=== PATIENT | male | born 1995 | race African-American/Black ===

== ENCOUNTER 2021-05-25 23:29 | Emergency (ER) | payer OTHER ==
[2021-05-25 23:43] VITALS: BP 130/78; PULSE 82; TEMP 98.7; BMI 17.1
[2021-05-26] MEDS ORDERED: ACETAMINOPHEN 500 MG TABLET (FP) PO ONE (03:51)
== END 2021-05-26 03:59 | disposition home or self-care (01) ==
LOC: JER 23:29
DX: S51.811A Laceration without foreign body of right forearm, initial encounter (principal); W25.XXXA Contact with sharp glass, initial encounter; Y92.9 Unspecified place or not applicable
CPT/HCPCS: 73090-TC-RT-FY; 73130-TC-RT-FY; 99284-25

== ENCOUNTER 2021-05-28 11:58 | Emergency (ER) | payer OTHER ==
[2021-05-28 12:31] VITALS: BP 139/76; PULSE 91; TEMP 97.9; BMI 17.1
== END 2021-05-28 13:47 | disposition home or self-care (01) ==
LOC: JERFT 11:58
DX: Z48.00 Encounter for change or removal of nonsurgical wound dressing (principal)
CPT/HCPCS: 99281-25

== ENCOUNTER 2021-06-07 15:46 | Emergency (ER) | payer OTHER ==
[2021-06-07 15:57] VITALS: BP 117/76; PULSE 91; TEMP 97.9; BMI 17.1
== END 2021-06-07 17:20 | disposition home or self-care (01) ==
LOC: JERFT 15:46
DX: Z48.02 Encounter for removal of sutures (principal)
CPT/HCPCS: 99281-25

== ENCOUNTER 2022-06-24 14:23 | Emergency (ER) | payer OTHER ==
[2022-06-24 15:00] VITALS: BP 107/61; PULSE 83; RESP 17; TEMP 98.4; BMI 16.7
[2022-06-24 17:16] LABS: BASO % 0.4 % (0-2.0); EOS % 1.6 % (0-4.5); HEMATOCRIT 45.8 % (35.4-49); HEMOGLOBIN 14.6 GM/dL (11.7-16.9); LYMPH % 26.9 % (8-40); MCH 25.6 pg (25.7-33.7); MCHC 31.8 g/dl (32.0-35.9); MEAN CELL VOLUME 80.5 fl (80-96); MEAN PLT VOLUME 9.4 fl (7.5-11.1); MONO % 9.3 % (3.8-10.2); NEUT % 61.8 % (42.8-82.8); PLATELET COUNT 146 10^3/uL (134-434); RBC 5.69 M/mm3 (4.00-5.60); RDW 12.7 % (11.9-15.9); WHITE BLOOD COUNT 5.6 K/mm3 (4.0-10.0)
[2022-06-24 17:41] LABS: BLOOD UREA NITROGEN 11.4 mg/dL (7-18); CALCIUM 9.2 mg/dL (8.5-10.1)
[2022-06-24 17:45] LABS: CREATININE 0.8 mg/dL (0.55-1.3)
[2022-06-24] MEDS ORDERED: IBUPROFEN 600 MG TABLET (FP) PO ONE ×2 (18:25→18:31)
[2022-06-24] MEDS ORDERED: ACETAMINOPHEN 500 MG TABLET (FP) PO ONE (18:25)
[2022-06-24] MEDS ORDERED: AMOX TR/POT CLAV 500MG/125MG TABLETS (FP) PO ONE (18:26)
[2022-06-24] MEDS ORDERED: AMOX TR/POT CLAV 500MG/125MG TABLETS (FP) ONE (18:30)
[2022-06-24] MEDS ORDERED: ACETAMINOPHEN 500 MG TABLET (FP) ONE (18:31)
== END 2022-06-24 18:38 | disposition home or self-care (01) ==
LOC: JER 14:23
DX: J02.0 Streptococcal pharyngitis (principal)
CPT/HCPCS: 36415; 71046-TC-FY; 80048; 84484; 85025; 87651; 93005; 93010; 99285-25